=== PATIENT | male | born 1995 ===

== ENCOUNTER 2021-11-05 19:32 | Emergency (ER) | payer SELFPAY ==
[2021-11-05 20:04] VITALS: BP 113/71; PULSE 80; RESP 18; TEMP 37; O2SAT 96
--- NOTE | 2021-11-05 20:30 | ED.GENADUL_ITS ---
Discharge Plan Disposition Patient Disposition: HOME Discharge Details Chief Complaint: Laceration Clinical Impression: Laceration of index finger Primary Care Provider: None,None ED Provider: Deshawn Kelly Discharge Instructions Instructions: Finger Laceration (ED) Additional Instructions: Laceration was approximated using Dermabond and Steri-Strips. Keep the area clean and dry. You may change the outer dressing daily. Wear finger splint for 1 week to avoid additional tension on the laceration and reopening. Rest, elevate, cool compresses as tolerated. [id number] Tylenol and/or Motrin as directed for discomfort. Please watch for new or worsening symptoms and return to the ER for any concerns. The Steri-Strips will come off on their own in approximately 1 week. Please follow-up as directed by your employer as this was through Workmen's Comp. Medical Decision Making This is a 26-year-old gentleman, [id number], tetanus status up-to-date, reports that he accidentally cut himself on his right index finger with a pocket knife at work about 2-2 and half hours ago. He denies any other injury, numbness, tingling, weakness. Medical personnel at the scene cleaned and irrigated thoroughly sent to the ER for further evaluation. We discussed obtaining x-ray to rule out retained foreign body and/or bony involvement, patient declines. We discussed closure options, he declined stitches and would prefer to pursue Dermabond and Steri-Strips. The laceration was again cleaned using sterile saline and then approximated using Dermabond and Steri-Strips. Patient tolerated well. Finger splint and apply Standard discharge and return precautions were provided. Patient understands, is agreeable to this plan, and has no additional questions or concerns upon discharge. This documentation was generated using [email or web address] system, please disregard any oddities of phrase or misspellings. HPI General Mode of arrival: ambulatory . Date/Time Provider Initiated Documentation: 11/05/21 19:33 . Limitations to Documentation: no limitations . Information obtained by: patient . History of Present Illness 26 year old M presents to the emergency department with the chief complaint of R index finger lac, described as mild, with intensity rated at 2. Quality is described as aching, and is localized to the right and upper extremity. Patient reports no radiation. Patient started experiencing this hour(s) (2.5) and it has been constant. Immobilization improves symptom(s), Movement worsens symptoms . Patient notes no other symptoms.. Patient did receive the following treatments prior to arrival, none Related Data Allergies Allergy/AdvReac Type Severity Reaction Status Date / Time No Known Allergies Allergy Unverified 11/05/21 20:16 General Stated Complaint: Laceration ALEXX: 4 Review of Systems Constitutional Constitutional: Denies weakness Musculoskeletal Musculoskeletal: Denies arthralgias, Denies numbness, Reports stiffness and Denies tingling Integumentary/Breasts Skin/Breast: Denies erythema Neurologic Neurologic: Denies numbness, Denies tingling and Denies weakness PFSH All Active Problems (Updated 11/05/21 @ 20:35 by FITO Lr) Laceration of index finger (Acute) Medical History Asthma Social History Smoking/Tobacco Use Status: Current-Occasional Smoking risk assessment performed?: Yes Alcohol Intake: never Drug use: Never Substance use type: does not use Do you feel safe at home: Yes Do you feel safe in your relationship?: Yes Exam Const General: cooperative, healthy appearing, comfortable and no acute distress Orientation: alert and awake [facility] Head: normal to inspection, normocephalic and atraumatic Eyes Conjunctivae: conjunctivae normal Neck Neck: normal visual inspection, trachea midline and supple Resp Effort & Inspection: normal respiratory effort and able to speak in complete sentences Cardio Rate: regular rate Rhythm: regular rhythm Skin General skin exam: no rashes or lesions noted Neuro General: patient alert, patient awake, moves all extremities and no focal motor deficits Cognition: normal cognition Speech: speech normal Gait: normal gait Sensory Exam: no sensory deficits noted Extrem General: full ROM and capillary refill normal Hand/finger images: 1. 0.5 cm laceration, well approximated. No active bleeding or obvious foreign body. Normal radial pulse and capillary refill. 5-5 strength. Neuro, vascular, tendon intact. Psych Appearance: grossly normal Mental Status: mental status grossly normal Course Vital Signs Vital signs: Vital Signs Temperature 37.0 C 11/05/21 20:04 Pulse 80 11/05/21 20:04 Respiratory Rate 18 11/05/21 20:04 Blood Pressure 113/71 08/14/22 20:04 Pulse Oximetry 96 11/05/21 20:04 Temperature 37.0 C 11/05/21 20:04 Pulse 80 11/05/21 20:04 Respiratory Rate 18 11/05/21 20:04 Respiratory Effort Non-Labored 11/05/21 20:09 Blood Pressure 113/71 11/05/21 20:04 Blood Pressure Position Sitting 11/05/21 20:04 Pulse Oximetry 96 11/05/21 20:04 Oxygen Delivery Method Room Air 11/05/21 20:04 Oxygen Flow Rate 0 11/05/21 20:04 Pain Level 1 11/05/21 20:04
== END 2021-11-05 21:07 | disposition home or self-care (01) ==
PROVIDERS: Emergency Provider Physician Assistant
DX: S61.211A Laceration without foreign body of left index finger without damage to nail, initial encounter (principal); W26.0XXA Contact with knife, initial encounter; Y99.0 Civilian activity done for income or pay
CPT/HCPCS: 29130; 99283; 99282